=== PATIENT | female | born 1985 | race African-American/Black ===

== ENCOUNTER 2016-12-20 19:54 | Emergency (ER) | payer OTHER ==
[2016-12-20] MEDS ORDERED: KETOROLAC 30 MG/ML 1 ML VIAL IVP STA (20:18)
[2016-12-20] MEDS ORDERED: SODIUM CHLORIDE 0.9% 1,000 ML IV ONE (20:19)
--- NOTE | 2016-12-20 20:43 | ED ---
Abdominal Pain HPI - General Chief Complaint: Abdominal Pain Stated Complaint: Abd Pain Time Seen by Provider: 12/20/16 20:06 Source: patient, RN notes reviewed Mode of arrival: ambulatory Limitations: no limitations - History of Present Illness Initial Comments: Patient is a 31-year-old [employer] chief complaint of sharp stabbing lower abdominal pain and cramping for approximately one day. She reports that she had similar symptoms a few days ago but that has subsided. She states that also today she' s noticed some faint pink vaginal discharge. LAst menstrual cylcle was 2 weeks ago. Patient denies any recent fever, chills, shortness of breath, chest pain, back pain, , nausea vomiting, numbness or tingling, dysuria or hematuria, constipation or diarrhea, headaches or visual changes, or any other current symptoms - Related Data Home Medications Medication Instructions Recorded Confirmed Albuterol Inhaler [Ventolin Hfa 2 puff INHALATION RT-Q6H PRN 12/20/16 12/20/16 Inhaler] Albuterol Nebulized [Ventolin 2.5 mg INHALATION RT-QID PRN 12/20/16 12/20/16 Nebulized] Loratadine [Claritin] 10 mg PO DAILY 12/20/16 12/20/16 Montelukast [Singulair] 10 mg PO HS 12/20/16 12/20/16 Previous Rx's Medication Instructions Recorded Nitrofurantoin Monohyd/M-Cryst 100 mg PO Q12HR #10 cap 12/20/16 [Macrobid] Phenazopyridine HCl [Pyridium] 100 mg PO TID #6 tab 12/20/16 Allergies Allergy/AdvReac Type Severity Reaction Status Date / Time Penicillins Allergy Rash/Hives Verified 12/20/16 20:04 Review of Systems ROS Statement: Those systems with pertinent positive or pertinent negative responses have been documented in the HPI. ROS Other: All systems not noted in ROS Statement are negative. Past Medical History Past Medical History: Asthma History of Any Multi-Drug Resistant Organisms: None Reported Past Surgical History: Section Past Psychological History: No Psychological Hx Reported Smoking Status: Never smoker Past Alcohol Use History: Rare Past Drug Use History: None Reported General Exam - General Exam Comments Initial Comments: Well appearing 31 year old female, no distress. Limitations: no limitations General appearance: alert, in no apparent distress Head exam: Present: atraumatic, normocephalic, normal inspection Eye exam: Present: normal appearance, PERRL, EOMI. Absent: scleral icterus, conjunctival injection, periorbital swelling ENT exam: Present: normal exam, mucous membranes moist Neck exam: Present: normal inspection. Absent: tenderness, meningismus, lymphadenopathy Respiratory exam: Present: normal lung sounds bilaterally. Absent: respiratory distress, wheezes, rales, rhonchi, stridor Cardiovascular Exam: Present: regular rate, normal rhythm, normal heart sounds. Absent: systolic murmur, diastolic murmur, rubs, gallop, clicks GI/Abdominal exam: Present: soft, normal bowel sounds. Absent: distended, tenderness, guarding, rebound, rigid External exam: Present: normal external exam Speculum exam: Present: vaginal bleeding. Absent: normal speculum exam, vaginal discharge, cervical discharge, foreign body By manual exam: Present: normal by manual exam. Absent: cervical motion tenderness, adnexal tenderness, adnexal mass Extremities exam: Present: normal inspection, full ROM, normal capillary refill. Absent: tenderness, pedal edema, joint swelling, calf tenderness Back exam: Present: normal inspection Neurological exam: Present: alert, oriented X3, CN II-XII intact Psychiatric exam: Present: normal affect, normal mood Skin exam: Present: warm, dry, intact, normal color. Absent: rash Course Vital Signs 12/20/16 12/20/16 19:55 20:02 Temperature 99.3 F 97.1 F L Pulse Rate 89 72 Respiratory 20 18 Rate Blood Pressure 151/72 128/66 O2 Sat by Pulse 97 100 Oximetry Medical Decision Making - Medical Decision Making Patient lab work reviewed, mild UTI patient will be started on macrobid. Patient speculum exam consist of vaginal bleedking consistent with menstrual cylce. Patient has negative hcg. Discussed case of abnormal uterine bleeding, discussed follow up with PCP on saturday for possible transvaginal US or further imaging. Patient has no tenderness or cervical motion tenderness. Patient agrees with threatmetn plan and will comply. - Lab Data Result diagrams: 12/20/16 20:34 12/20/16 20:34 Lab Results 12/20/16 12/20/16 12/20/16 Range/Units 20:34 20:34 20:34 WBC 5.0 (3.8-10.6) k/uL RBC 4.21 (3.80-5.40) m/uL Hgb 11.7 (11.4-16.0) gm/dL Hct 36.7 (34.0-46.0) % MCV 87.0 (80.0-100.0) fL MCH 27.8 (25.0-35.0) pg MCHC 32.0 (31.0-37.0) g/dL RDW 16.6 H (11.5-15.5) % Plt Count 210 (150-450) k/uL Neutrophils % 60 % Lymphocytes % 29 % Monocytes % 6 % Eosinophils % 1 % Basophils % 1 % Neutrophils # 3.0 (1.3-7.7) k/uL Lymphocytes # 1.5 (1.0-4.8) k/uL Monocytes # 0.3 (0-1.0) k/uL Eosinophils # 0.0 (0-0.7) k/uL Basophils # 0.0 (0-0.2) k/uL Anisocytosis Slight PT (9.0-12.0) sec INR (<1.1) APTT (22.0-30.0) sec Sodium 141 (137-145) mmol/L Potassium 3.7 (3.5-5.1) mmol/L Chloride 104 (98-107) mmol/L Carbon Dioxide 27 (22-30) mmol/L Anion Gap 10 mmol/L BUN 8 (7-17) mg/dL Creatinine 0.80 (0.52-1.04) mg/dL Est GFR (MDRD) Af Amer >60 (>60 ml/min/1.73 sqM) Est GFR (MDRD) Non-Af >60 (>60 ml/min/1.73 sqM) Glucose 90 (74-99) mg/dL Calcium 9.0 (8.4-10.2) mg/dL Total Bilirubin 0.6 (0.2-1.3) mg/dL AST 21 (14-36) U/L ALT 37 (9-52) U/L Alkaline Phosphatase 73 (38-126) U/L Total Protein 8.1 (6.3-8.2) g/dL Albumin 4.3 (3.5-5.0) g/dL Urine Color Urine Appearance (Clear) Urine pH (5.0-8.0) Ur Specific [place] (1.001-1.035) Urine Protein (Negative) Urine Glucose (UA) (Negative) Urine Ketones (Negative) Urine Blood (Negative) Urine Nitrite (Negative) Urine Bilirubin (Negative) Urine Urobilinogen (<2.0) mg/dL Ur Leukocyte Esterase (Negative) Urine RBC (0-5) /hpf Urine WBC (0-5) /hpf Ur Squamous Epith Cells (0-4) /hpf Urine Bacteria (None) /hpf Hyaline Casts (0-2) /lpf Urine Mucus (None) /hpf Urine HCG, Qual Not Detected (Not Detectd) Trichomonas Ag (Rapid) (Negative) 12/20/16 12/20/16 12/20/16 Range/Units 20:34 20:34 21:08 WBC (3.8-10.6) k/uL RBC (3.80-5.40) m/uL Hgb (11.4-16.0) gm/dL Hct (34.0-46.0) % MCV (80.0-100.0) fL MCH (25.0-35.0) pg MCHC (31.0-37.0) g/dL RDW (11.5-15.5) % Plt Count (150-450) k/uL Neutrophils % % Lymphocytes % % Monocytes % % Eosinophils % % Basophils % % Neutrophils # (1.3-7.7) k/uL Lymphocytes # (1.0-4.8) k/uL Monocytes # (0-1.0) k/uL Eosinophils # (0-0.7) k/uL Basophils # (0-0.2) k/uL Anisocytosis PT 10.4 (9.0-12.0) sec INR 1.0 (<1.1) APTT 27.0 (22.0-30.0) sec Sodium (137-145) mmol/L Potassium (3.5-5.1) mmol/L Chloride (98-107) mmol/L Carbon Dioxide (22-30) mmol/L Anion Gap mmol/L BUN (7-17) mg/dL Creatinine (0.52-1.04) mg/dL Est GFR (MDRD) Af Amer (>60 ml/min/1.73 sqM) Est GFR (MDRD) Non-Af (>60 ml/min/1.73 sqM) Glucose (74-99) mg/dL Calcium (8.4-10.2) mg/dL Total Bilirubin (0.2-1.3) mg/dL AST (14-36) U/L ALT (9-52) U/L Alkaline Phosphatase (38-126) U/L Total Protein (6.3-8.2) g/dL Albumin (3.5-5.0) g/dL Urine Color Yellow Urine Appearance Cloudy H (Clear) Urine pH 6.0 (5.0-8.0) Ur Specific [place] 1.021 (1.001-1.035) Urine Protein 3+ H (Negative) Urine Glucose (UA) Negative (Negative) Urine Ketones Negative (Negative) Urine Blood Moderate H (Negative) Urine Nitrite Positive H (Negative) Urine Bilirubin Negative (Negative) Urine Urobilinogen <2.0 (<2.0) mg/dL Ur Leukocyte Esterase Negative (Negative) Urine RBC 51 H (0-5) /hpf Urine WBC 28 H (0-5) /hpf Ur Squamous Epith Cells 1 (0-4) /hpf Urine Bacteria Moderate H (None) /hpf Hyaline Casts 1 (0-2) /lpf Urine Mucus Many H (None) /hpf Urine HCG, Qual (Not Detectd) Trichomonas Ag (Rapid) Negative (Negative) Disposition Clinical Impression: Abnormal uterine bleeding, UTI (urinary tract infection) Disposition: HOME SELF-CARE Condition: Good Instructions: Urinary Tract Infection in Women (ED), Dysfunctional Uterine Bleeding (ED) Additional Instructions: Patient is to follow-up with primary care provider on Saturday. Return to emergency department if any alarming signs or symptoms occur. Complete antibiotic prescription. Prescriptions: Nitrofurantoin Monohyd/M-Cryst [Macrobid] 100 mg PO Q12HR #10 cap Phenazopyridine HCl [Pyridium] 100 mg PO TID #6 tab Referrals: Sydnie Otoole MD [Primary Care Provider] - 1-2 days Time of Disposition: 21:51
[2016-12-20 20:50] LABS: Anisocytosis Slight; Basophils % (A) 1 %; CH 27.9; CHCM 32.1; Eosinophils % (A) 1 %; HCT 36.7 % (34.0-46.0); HDW 2.85; HGB 11.7 gm/dL (11.4-16.0); Luc % (Auto) 4; Lymphocytes # (A) 1.5 k/uL (1.0-4.8); Lymphocytes % (A) 29 %; MCH 27.8 pg (25.0-35.0); Mean Platelet Volume 7.8; Monocytes # (A) 0.3 k/uL (0-1.0); Monocytes % (A) 6 %; Neutrophils % (A) 60 %; RBC 4.21 m/uL (3.80-5.40); RDW 16.6 % (11.5-15.5); WBC (Perox) 5.01
[2016-12-20 20:57] LABS: Appearance,Urine Cloudy (Clear); Bacteria,Urine Moderate /hpf; Bilirubin,Urine Negative (Negative); Glucose,Urine (UA) Negative (Negative); Ketones,Urine Negative (Negative); Leukocyte Esterase,Urine Negative (Negative); Mucus,Urine Many /hpf; Nitrite,Urine Positive (Negative); Particle Count 28350; Protein,Urine 3+ (Negative); RBC,Urine 51 /hpf (0-5); Specific Gravity,Urine 1.021 (1.001-1.035); Squamous Epithelial Cell,Urine 1 /hpf (0-4); UA Billing (MACRO vs. MICRO) MICRO; Urobilinogen,Urine <2.0 mg/dL (<2.0); WBC,Urine 28 /hpf (0-5)
[2016-12-20 21:01] LABS: ALT 37 U/L (9-52); AST 21 U/L (14-36); Alkaline Phosphatase 73 U/L (38-126); Anion Gap 10 mmol/L; Blood Urea Nitrogen 8 mg/dL (7-17); Carbon Dioxide 27 mmol/L (22-30); Chloride 104 mmol/L (98-107); Glucose 90 mg/dL (74-99); Non-African American GFR(MDRD) >60 (>60 ml/min/1.73 sqM); Potassium 3.7 mmol/L (3.5-5.1); Sodium 141 mmol/L (137-145); Total Bilirubin 0.6 mg/dL (0.2-1.3); Total Protein 8.1 g/dL (6.3-8.2)
[2016-12-20 21:05] LABS: Prothrombin Time 10.4 sec (9.0-12.0)
[2016-12-20 22:15] VITALS: BP 128/66; PULSE 72; RESP 18; TEMP 97.1
== END 2016-12-20 22:15 | disposition home or self-care (01) ==
LOC: EC 19:54
DX: N93.9 Abnormal uterine and vaginal bleeding, unspecified (principal); N39.0 Urinary tract infection, site not specified; J45.909 Unspecified asthma, uncomplicated; Z79.899 Other long term (current) drug therapy; Z88.0 Allergy status to penicillin
CPT/HCPCS: 99284; 96374; 96361; 36415; 80053; 87591; 87491; 85025; 85610; 85730; 81001; 81025; 87808; 87070; J1885; 87205

== ENCOUNTER → 2017-01-15 | Outpatient (CLI) | payer OTHER ==
--- NOTE | 2017-01-15 11:52 | US ---
EXAMINATION TYPE: US pelvis complete transvag DATE OF EXAM: 01/15/2017 10:57 AM COMPARISON: 07/22/2015 CLINICAL HISTORY: 31-year-old female with R10.2 Pelvic pain,N92.6 irregular menstrual. TECHNIQUE: Multiple transabdominal sonographic images of the pelvis were obtained. Endovaginal scann ing was medically necessary to better evaluate the anatomy. Date of LMP: 12/15/2016, FINDINGS: Uterus: Prominent in size and anteverted measuring 10.3 x 6.5 x 7.1 cm. A scar is noted khris ng the anterior lower uterine segment. Endometrial Stripe: 1.7 cm, mildly thickened. Right Ovary: 3.5 x 1.9 x 1.6 cm, limited visualization due to ovarian position. No gross abnormalit y. Left Ovary: 3.4 x 2.1 x 1.7 cm with a crenulated thick walled cystic structure measuring 1.9 cm show ing peripheral vascularity. No evident adnexal abnormality or cul-de-sac free fluid. IMPRESSION: 1. Somewhat bulky uterus but without a focal fibroid seen. 2. scar noted. 3. Endometrial thickening at 1.7 cm. This should correspond to the late secretory phase of the menstr ual cycle. A follow-up in 6 - 8 weeks can reassess if indicated. 4. Incidental 1.9 cm corpus luteum in the left ovary.
== END | disposition home or self-care (01) ==
LOC: RADUSWWP 10:11
PROVIDERS: ATTEND Family Medicine
DX: N83.12 Corpus luteum cyst of left ovary (principal); R93.8 Abnormal findings on diagnostic imaging of other specified body structures; R10.2 Pelvic and perineal pain; N92.6 Irregular menstruation, unspecified
CPT/HCPCS: 76830; 76856

== ENCOUNTER → 2017-05-24 | Outpatient (CLI) | payer OTHER ==
--- NOTE | 2017-05-24 11:19 | US ---
EXAMINATION TYPE: US pelvis complete transvag DATE OF EXAM: 05/24/2017 COMPARISON: NONE CLINICAL HISTORY: Left ovarian cyst N83.20. TECHNIQUE: Transvaginal (TV) and Transabdominal (TA) Date of LMP: 05/12/2017 EXAM MEASUREMENTS: Uterus: 10.4 x 6.3 x 6.1 cm Endometrial Stripe: 0.8 cm Right Ovary: 3.7 x 1.9 x 2.2 cm Left Ovary: 3.7 x 2.4 x 1.7 cm 1. Uterus: Anteverted Enlarged 2. Endometrium: wnl 3. Right Ovary: Hypoechoic area visualized measuring 1.7 x 1.7 x 1.5 cm 4. Left Ovary: wnl, cyst previously seen is not visualized on today's exam 5. Bilateral Adnexa: wnl 6. Posterior cul-de-sac: wnl IMPRESSION: 1. Appears to be a complex cyst on the right ovary measuring 1.7 cm. Follow-up to resolution is recom mended. This could be related to the hemorrhagic cyst. 2. Previous left ovarian cyst is not evident on the current study.
[2017-05-24 12:05] LABS: Hemoglobin A1C 5.1 % (4.2-6.1)
== END | disposition home or self-care (01) ==
LOC: RADUSWWP 10:08
PROVIDERS: ATTEND Obstetrics & Gynecology
DX: N83.202 Unspecified ovarian cyst, left side (principal); N92.0 Excessive and frequent menstruation with regular cycle
CPT/HCPCS: 36415; 76830; 76856; 83001; 83002; 83036; 84146; 84443

== ENCOUNTER → 2019-08-24 | Outpatient (CLI) | payer OTHER ==
[2019-08-24 17:08] LABS: HCT 35.2 % (34.0-46.0); HGB 10.8 gm/dL (11.4-16.0); Hypochromasia Slight; MCHC 30.6 g/dL (31.0-37.0); MCV 81.9 fL (80.0-100.0); Mean Platelet Volume 8.3; Platelet Count 207 k/uL (150-450); RBC 4.29 m/uL (3.80-5.40); WBC 6.6 k/uL (3.8-10.6)
[2019-08-25 02:54] LABS: Hemoglobin A1C 5.2 % (4.0-6.0)
[2019-08-25 05:02] LABS: Progesterone 7.2 ng/mL
[2019-08-25 05:18] LABS: Prolactin 8.2 ng/mL (2.8-29.2)
[2019-08-25 05:19] LABS: Estradiol 126.8 pg/mL; Follicle Stimulating Hormone 4.5 mIU/mL; Luteinizing Hormone 4.4 mIU/mL
== END | disposition home or self-care (01) ==
LOC: LABWHC1 16:31
PROVIDERS: ATTEND Obstetrics & Gynecology
DX: N93.8 Other specified abnormal uterine and vaginal bleeding (principal); N64.3 Galactorrhea not associated with childbirth
CPT/HCPCS: 36415; 82670; 82947; 83001; 83002; 83036; 84144; 84146; 84403; 84443; 84479; 84481; 85027

== ENCOUNTER → 2020-12-30 | Outpatient (CLI) | payer OTHER | END | disposition home or self-care (01) | LOC: LABWHC1 12:28 | PROVIDERS: ATTEND Obstetrics & Gynecology | DX: N92.6 Irregular menstruation, unspecified (principal) | CPT/HCPCS: 36415; 84702 ==

== ENCOUNTER 2021-08-18 10:47 | Emergency (ER) | payer OTHER ==
[2021-08-18 12:21] LABS: Appearance,Urine Clear (Clear); Bacteria,Urine Rare /hpf; Bilirubin,Urine Negative (Negative); Blood,Urine Trace (Negative); Color,Urine Light Yellow; Glucose,Urine (UA) Negative (Negative); Ketones,Urine Negative (Negative); Leukocyte Esterase,Urine Negative (Negative); Nitrite,Urine Negative (Negative); PH, Urine 5.5 (5.0-8.0); Protein,Urine Negative (Negative); RBC,Urine 1 /hpf (0-5); Specific Gravity,Urine 1.005 (1.001-1.035); Squamous Epithelial Cell,Urine 2 /hpf (0-4); Urobilinogen,Urine <2.0 mg/dL (<2.0); WBC,Urine 2 /hpf (0-5)
[2021-08-18] MEDS ORDERED: KETOROLAC 15 MG/ML 1 ML VIAL IVP STA (14:26)
[2021-08-18] MEDS ORDERED: SODIUM CHLORIDE 0.9% 1,000 ML IV STA (14:26)
[2021-08-18] MEDS ORDERED: ONDANSETRON 4 MG/2 ML VIAL IVP STA (14:26)
[2021-08-18 14:56] LABS: Basophils % (A) 0 %; Eosinophils # (A) 0.2 k/uL (0-0.7); Eosinophils % (A) 3 %; HCT 40.1 % (34.0-46.0); HGB 13.2 gm/dL (11.4-16.0); Lymphocytes # (A) 1.6 k/uL (1.0-4.8); Lymphocytes % (A) 30 %; MCH 31.2 pg (25.0-35.0); MCHC 32.9 g/dL (31.0-37.0); Mean Platelet Volume 7.5; Monocytes # (A) 0.2 k/uL (0-1.0); Monocytes % (A) 4 %; Neutrophils # (A) 3.4 k/uL (1.3-7.7); Neutrophils % (A) 62 %; Platelet Count 186 k/uL (150-450); RBC 4.22 m/uL (3.80-5.40); RDW 15.1 % (11.5-15.5); WBC 5.5 k/uL (3.8-10.6)
[2021-08-18 15:13] LABS: ALT 40 U/L (4-34); AST 36 U/L (14-36); African American GFR (CKD) >90 (>60 ml/min/1.73 sqM); Albumin 4.1 g/dL (3.5-5.0); Alkaline Phosphatase 65 U/L (38-126); Amylase 45 U/L (30-110); Anion Gap 8 mmol/L; Blood Urea Nitrogen 5 mg/dL (7-17); Calcium 9.6 mg/dL (8.4-10.2); Carbon Dioxide 26 mmol/L (22-30); Chloride 104 mmol/L (98-107); Glucose 102 mg/dL (74-99); Lipase 60 U/L (23-300); Non-African American GFR(CKD) 88 (>60 ml/min/1.73 sqM); Potassium 3.9 mmol/L (3.5-5.1); Sodium 138 mmol/L (137-145); Total Bilirubin 0.8 mg/dL (0.2-1.3); Total Protein 7.9 g/dL (6.3-8.2)
[2021-08-18 15:43] VITALS: RESP 17
--- NOTE | 2021-08-18 15:47 | CT ---
EXAMINATION TYPE: CT abdomen pelvis w con DATE OF EXAM: 08/18/2021 COMPARISON: None HISTORY: abd pain for [address] DLP: 3235 mGycm CONTRAST: CT scan of the abdomen and pelvis is performed and with IV Contrast, patient injected with 100 mL of Isovue 300. FINDINGS: LUNG BASES-: No visible nodule. No infiltrate. Right basilar dependent atelectasis. LIVER/GB: No calcified gallstones. No space occupying hepatic lesion. Biliary tree is of normal ca liber. PANCREAS: No inflammation. No distinct mass. SPLEEN: No splenic enlargement. No lesion seen. ADRENALS: No nodule. No thickening. KIDNEYS/BLADDER: No hydronephrosis. No nephrolithiasis. No distinct renal mass. Urinary bladder g rossly unremarkable. BOWEL: Normal appendix. Normal bowel caliber. Mild wall thickening of the jejunal loops with the mil d fluid distention may reflect enteritis. Correlate clinically. No free air or abscess. GENITAL ORGANS: Uterine fundal fullness may reflect underlying leiomyomatous change. No adnexal raheel s. Trace free fluid within the cul-de-sac. LYMPH NODES: No greater than 1cm abdominal or pelvic lymph nodes are appreciated. AORTA: No significant abnormality. OSSEOUS STRUCTURES: No significant abnormality is seen. OTHER: No significant additional abnormality is seen. IMPRESSION: 1. Mild wall thickening of the jejunal loops with the mild fluid distention may reflect enteritis. Co rrelate clinically. 2.Uterine fundal fullness may reflect underlying leiomyomatous change.
--- NOTE | 2021-08-18 17:06 | ED ---
General Adult HPI - General Chief complaint: Abdominal Pain Stated complaint: abd pain Time Seen by Provider: 08/18/21 14:13 Source: patient Mode of arrival: ambulatory Limitations: no limitations - History of Present Illness Initial comments: 36-year-old female without any significant past medical history presents to the emergency room for abdominal pain. She has had lower abdominal pain for the past several days at least. Patient states it may have been ongoing on and off for the past couple months but she is not 100% sure. She has also had nausea with this. No vomiting. She has not had any diarrhea. She did not have any fevers. Patient has no other complaints at this time including shortness of breath, chest pain, nausea or vomiting, headache, or visual changes. - Related Data Home Medications Medication Instructions Recorded Confirmed Loratadine [Claritin] 10 mg PO HS 12/20/16 08/18/21 Previous Rx's Medication Instructions Recorded Dicyclomine [Bentyl] 20 mg PO TID PRN #20 tablet 08/18/21 Allergies Allergy/AdvReac Type Severity Reaction Status Date / Time Penicillins Allergy Rash/Hives Verified 08/18/21 14:27 Review of Systems ROS Statement: Those systems with pertinent positive or pertinent negative responses have been documented in the HPI. ROS Other: All systems not noted in ROS Statement are negative. Past Medical History Past Medical History: Asthma History of Any Multi-Drug Resistant Organisms: None Reported Past Surgical History: Section Past Psychological History: No Psychological Hx Reported Smoking Status: Never smoker Past Alcohol Use History: Rare Past Drug Use History: None Reported General Exam Limitations: no limitations General appearance: alert, in no apparent distress Head exam: Present: atraumatic Eye exam: Present: normal appearance, PERRL, EOMI. Absent: conjunctival injection ENT exam: Present: normal exam, mucous membranes moist Neck exam: Present: normal inspection, full ROM. Absent: tenderness Respiratory exam: Present: normal lung sounds bilaterally. Absent: respiratory distress, wheezes Cardiovascular Exam: Present: regular rate, normal rhythm, normal heart sounds GI/Abdominal exam: Present: soft, normal bowel sounds. Absent: distended, tenderness, guarding, rebound Course Vital Signs 08/18/21 08/18/21 11:07 15:11 Temperature 99.4 F Pulse Rate 77 78 Respiratory 18 17 Rate Blood Pressure 134/78 O2 Sat by Pulse 100 Oximetry Medical Decision Making - Medical Decision Making Vitals are stable. CBC CMP unremarkable. Urinalysis is not negative. HCG is not detected. He T abdomen and pelvis shows mild wall thickening of the jejunal loops with the mild fluid distention I may reflect enteritis. There is also uterine fundal fullness that may reflect underlying leiomyomatous change. Patient reevaluated after pain medication. She is doing much better. Repeat abdominal exam revealed no tenderness again. Patient can be discharged home until and Motrin. Recommend that she follow-up with GI and her [facility]. If she has worsening symptoms she will return to the emergency room. - Lab Data Result diagrams: 08/18/21 14:31 08/18/21 14:31 Lab Results 08/18/21 08/18/21 08/18/21 Range/Units 11:30 11:30 14:31 WBC 5.5 (3.8-10.6) k/uL RBC 4.22 (3.80-5.40) m/uL Hgb 13.2 (11.4-16.0) gm/dL Hct 40.1 (34.0-46.0) % MCV 95.0 (80.0-100.0) fL MCH 31.2 (25.0-35.0) pg MCHC 32.9 (31.0-37.0) g/dL RDW 15.1 (11.5-15.5) % Plt Count 186 (150-450) k/uL MPV 7.5 Neutrophils % 62 % Lymphocytes % 30 % Monocytes % 4 % Eosinophils % 3 % Basophils % 0 % Neutrophils # 3.4 (1.3-7.7) k/uL Lymphocytes # 1.6 (1.0-4.8) k/uL Monocytes # 0.2 (0-1.0) k/uL Eosinophils # 0.2 (0-0.7) k/uL Basophils # 0.0 (0-0.2) k/uL Sodium (137-145) mmol/L Potassium (3.5-5.1) mmol/L Chloride (98-107) mmol/L Carbon Dioxide (22-30) mmol/L Anion Gap mmol/L BUN (7-17) mg/dL Creatinine (0.52-1.04) mg/dL Est GFR (CKD-EPI)AfAm (>60 ml/min/1.73 sqM) Est GFR (CKD-EPI)NonAf (>60 ml/min/1.73 sqM) Glucose (74-99) mg/dL Calcium (8.4-10.2) mg/dL Total Bilirubin (0.2-1.3) mg/dL AST (14-36) U/L ALT (4-34) U/L Alkaline Phosphatase (38-126) U/L Total Protein (6.3-8.2) g/dL Albumin (3.5-5.0) g/dL Amylase (30-110) U/L Lipase (23-300) U/L Urine Color Light Yellow Urine Appearance Clear (Clear) Urine pH 5.5 (5.0-8.0) Ur Specific [place] 1.005 (1.001-1.035) Urine Protein Negative (Negative) Urine Glucose (UA) Negative (Negative) Urine Ketones Negative (Negative) Urine Blood Trace H (Negative) Urine Nitrite Negative (Negative) Urine Bilirubin Negative (Negative) Urine Urobilinogen <2.0 (<2.0) mg/dL Ur Leukocyte Esterase Negative (Negative) Urine RBC 1 (0-5) /hpf Urine WBC 2 (0-5) /hpf Ur Squamous Epith Cells 2 (0-4) /hpf Urine Bacteria Rare H (None) /hpf Urine HCG, Qual Not Detected (Not Detectd) 08/18/21 Range/Units 14:31 WBC (3.8-10.6) k/uL RBC (3.80-5.40) m/uL Hgb (11.4-16.0) gm/dL Hct (34.0-46.0) % MCV (80.0-100.0) fL MCH (25.0-35.0) pg MCHC (31.0-37.0) g/dL RDW (11.5-15.5) % Plt Count (150-450) k/uL MPV Neutrophils % % Lymphocytes % % Monocytes % % Eosinophils % % Basophils % % Neutrophils # (1.3-7.7) k/uL Lymphocytes # (1.0-4.8) k/uL Monocytes # (0-1.0) k/uL Eosinophils # (0-0.7) k/uL Basophils # (0-0.2) k/uL Sodium 138 (137-145) mmol/L Potassium 3.9 (3.5-5.1) mmol/L Chloride 104 (98-107) mmol/L Carbon Dioxide 26 (22-30) mmol/L Anion Gap 8 mmol/L BUN 5 L (7-17) mg/dL Creatinine 0.84 (0.52-1.04) mg/dL Est GFR (CKD-EPI)AfAm >90 (>60 ml/min/1.73 sqM) Est GFR (CKD-EPI)NonAf 88 (>60 ml/min/1.73 sqM) Glucose 102 H (74-99) mg/dL Calcium 9.6 (8.4-10.2) mg/dL Total Bilirubin 0.8 (0.2-1.3) mg/dL AST 36 (14-36) U/L ALT 40 H (4-34) U/L Alkaline Phosphatase 65 (38-126) U/L Total Protein 7.9 (6.3-8.2) g/dL Albumin 4.1 (3.5-5.0) g/dL Amylase 45 (30-110) U/L Lipase 60 (23-300) U/L Urine Color Urine Appearance (Clear) Urine pH (5.0-8.0) Ur Specific [place] (1.001-1.035) Urine Protein (Negative) Urine Glucose (UA) (Negative) Urine Ketones (Negative) Urine Blood (Negative) Urine Nitrite (Negative) Urine Bilirubin (Negative) Urine Urobilinogen (<2.0) mg/dL Ur Leukocyte Esterase (Negative) Urine RBC (0-5) /hpf Urine WBC (0-5) /hpf Ur Squamous Epith Cells (0-4) /hpf Urine Bacteria (None) /hpf Urine HCG, Qual (Not Detectd) Disposition Clinical Impression: Abdominal pain Narrative: enteritis uterine changes Disposition: HOME SELF-CARE Condition: Good Instructions (If sedation given, give patient instructions): Abdominal Pain (ED) Additional Instructions: Please follow up with GI and [facility]. Please return to the emergency room for any worsening symptoms. Prescriptions: Dicyclomine [Bentyl] 20 mg PO TID PRN #20 tablet PRN Reason: abdominal pain Is patient prescribed a controlled substance at d/c from ED?: No Referrals: Sydnie Otoole MD [Primary Care Provider] - 1-2 days Yesenia Draper MD [STAFF PHYSICIAN] - 1-2 days Time of Disposition: 16:58
[2021-08-18 17:13] VITALS: BP 128/70; PULSE 75; TEMP 97.6
== END 2021-08-18 17:22 | disposition home or self-care (01) ==
LOC: EC 10:47
DX: R10.9 Unspecified abdominal pain (principal); J45.909 Unspecified asthma, uncomplicated
CPT/HCPCS: 36415; 80053; 82150; 83690; 85025; 81001; 81025; 74177; 96374; 96361; 96375; 99284; J2405; J1885; Q9967

== ENCOUNTER 2021-09-13 20:00 | Emergency (ER) | payer OTHER ==
[2021-09-13 21:14] VITALS: TEMP 98.5
[2021-09-13 23:15] VITALS: BP 155/84; PULSE 88; RESP 16
[2021-09-13] MEDS ORDERED: SODIUM CHLORIDE 0.9% 1,000 ML IV STA (23:43)
[2021-09-13] MEDS ORDERED: ONDANSETRON 4 MG/2 ML VIAL IVP STA (23:43)
[2021-09-13] MEDS ORDERED: MORPHINE SULFATE 4 MG/ML SYRINGE IV STA (23:43)
[2021-09-14 00:22] LABS: Basophils % (A) 0 %; Eosinophils # (A) 0.1 k/uL (0-0.7); Eosinophils % (A) 2 %; HCT 39.5 % (34.0-46.0); HGB 12.8 gm/dL (11.4-16.0); Lymphocytes # (A) 1.4 k/uL (1.0-4.8); Lymphocytes % (A) 17 %; MCH 30.5 pg (25.0-35.0); MCHC 32.3 g/dL (31.0-37.0); MCV 94.4 fL (80.0-100.0); Mean Platelet Volume 7.5; Monocytes # (A) 0.4 k/uL (0-1.0); Monocytes % (A) 4 %; Neutrophils # (A) 6.3 k/uL (1.3-7.7); Neutrophils % (A) 76 %; Platelet Count 199 k/uL (150-450); RBC 4.19 m/uL (3.80-5.40); RDW 14.9 % (11.5-15.5); WBC 8.4 k/uL (3.8-10.6)
[2021-09-14 00:49] LABS: ALT 22 U/L (4-34); AST 20 U/L (14-36); African American GFR (CKD) >90 (>60 ml/min/1.73 sqM); Albumin 4.4 g/dL (3.5-5.0); Alkaline Phosphatase 62 U/L (38-126); Amylase 42 U/L (30-110); Anion Gap 12 mmol/L; Blood Urea Nitrogen 7 mg/dL (7-17); Calcium 9.4 mg/dL (8.4-10.2); Carbon Dioxide 26 mmol/L (22-30); Chloride 102 mmol/L (98-107); Glucose 95 mg/dL (74-99); Lipase 61 U/L (23-300); Non-African American GFR(CKD) >90 (>60 ml/min/1.73 sqM); Potassium 3.6 mmol/L (3.5-5.1); Sodium 140 mmol/L (137-145); Total Bilirubin 0.9 mg/dL (0.2-1.3); Total Protein 7.8 g/dL (6.3-8.2)
--- NOTE | 2021-09-14 00:49 | US ---
EXAMINATION TYPE: US transvaginal DATE OF EXAM: 09/14/2021 COMPARISON: US, CT CLINICAL HISTORY: pelvic pain; poss leiomyoma. Pain. Poss leiomyoma. Hx C Section, twin . A0. TECHNIQUE: Transvaginal (TV). Date of LMP: 06/28/2021 EXAM MEASUREMENTS: Uterus: 12.7 x 7.9 x 6.9 cm Endometrial Stripe: Slightly limited visibility. 0.80 cm Right Ovary: 4.3 x 2.4 x 3.2 cm Left Ovary: 3.2 x 2.3 x 1.9 cm 1. Uterus: Anteverted Appears enlarged. Solid heterogeneous area seen posteriorly measuring 8.1 x 6.6 x 6.4 cm. 2. Endometrium: Measures 0.8 cm. 3. Right Ovary: Anechoic area seen: 1.4 x 1.7 x 1.6 cm. 4. Left Ovary: Appears wnl. Spectral, color and waveform doppler imaging shows arterial and venous flow within the ovaries. 5. Bilateral Adnexa: Slightly limited visibility, no abnormalities seen. 6. Posterior cul-de-sac: Minimal fluid seen. IMPRESSION: There is 7.5 cm posterior wall uterine fibroid. No adnexal mass. No evidence of ovarian torsion. Norm al endometrium. Fibroid not changed compared to old CT scan of 08/18/2021.
[2021-09-14 00:51] LABS: Appearance,Urine Cloudy (Clear); Bilirubin,Urine Negative (Negative); Blood,Urine Large (Negative); Color,Urine Light Red; Glucose,Urine (UA) Negative (Negative); Ketones,Urine Trace (Negative); Leukocyte Esterase,Urine Large (Negative); Mucus,Urine Occasional /hpf; Nitrite,Urine Negative (Negative); Protein,Urine 1+ (Negative); RBC,Urine >182 /hpf (0-5); Specific Gravity,Urine 1.024 (1.001-1.035); Squamous Epithelial Cell,Urine 1 /hpf (0-4); WBC,Urine 45 /hpf (0-5)
--- NOTE | 2021-09-14 01:00 | ED ---
Abdominal Pain HPI - General Chief Complaint: Abdominal Pain Stated Complaint: Abdominal pain Time Seen by Provider: 09/13/21 23:18 Source: patient Mode of arrival: ambulatory Limitations: no limitations - History of Present Illness Initial Comments: 36 year-old female patient presents to the emergency department for evaluation of pelvic pain and pressure. States it started on the left side and moved across her lower abdomen. Symptoms started yesterday and have worsened throughout the day today. She denies taking anything for pain. States her last normal period was in June. States since then she has had 3-4 day episodes of light pink to red bleeding. She denies any fever, chills, nausea, vomiting, or diarrhea. Denies any hematuria, dysuria, urinary urgency, or frequency. Patient denies any recent rash, cough, shortness of breath, chest pain, back pain, numbness, tingling, dizziness, weakness, headache, visual changes, or any other complai nts. - Related Data Home Medications Medication Instructions Recorded Confirmed Loratadine [Claritin] 10 mg PO HS 12/20/16 08/18/21 Previous Rx's Medication Instructions Recorded Dicyclomine [Bentyl] 20 mg PO TID PRN #20 tablet 08/18/21 Ibuprofen [Motrin] 600 mg PO Q8HR PRN #30 tab 09/14/21 Allergies Allergy/AdvReac Type Severity Reaction Status Date / Time Penicillins Allergy Rash/Hives Verified 09/13/21 21:11 Review of Systems ROS Statement: Those systems with pertinent positive or pertinent negative responses have been documented in the HPI. ROS Other: All systems not noted in ROS Statement are negative. Past Medical History Past Medical History: Asthma History of Any Multi-Drug Resistant Organisms: None Reported Past Surgical History: Section Past Psychological History: No Psychological Hx Reported Smoking Status: Never smoker Past Alcohol Use History: Rare Past Drug Use History: None Reported General Exam Limitations: no limitations General appearance: alert, in no apparent distress, other (This is a well- developed, well-nourished adult female patient in no acute distress.) ENT exam: Present: normal exam, normal oropharynx, mucous membranes moist Respiratory exam: Present: normal lung sounds bilaterally. Absent: respiratory distress, wheezes, rales, rhonchi, stridor Cardiovascular Exam: Present: regular rate, normal rhythm, normal heart sounds. Absent: systolic murmur, diastolic murmur, rubs, gallop, clicks GI/Abdominal exam: Present: soft, normal bowel sounds. Absent: distended, tenderness, guarding, rebound, rigid Neurological exam: Present: alert, oriented X3, CN II-XII intact Psychiatric exam: Present: normal affect, normal mood Skin exam: Present: warm, dry, intact, normal color. Absent: rash Course Vital Signs 09/13/21 09/13/21 21:11 23:09 Temperature 98.5 F Pulse Rate 91 88 Respiratory 20 16 Rate Blood Pressure 151/80 155/84 O2 Sat by Pulse 100 98 Oximetry Medical Decision Making - Medical Decision Making 36-year-old female patient presents to the emergency department today for evaluation of pelvic pain and irregular vaginal bleeding. Physical examination showed lower abdominal tenderness. She is afebrile wtih normal vital signs. Urine did show presence of blood, though she is having vaginal bleeding cur rently. Labs reviewed and revealed very mildly elevated HCG. US transvaginal showed uterine fibroid which was redemonstrated from previous CT scan in August. She is following with Dr. Talbot in regards to this. She be discharged to follow-up with Dr. Tinajero as soon as possible. Return parameters were discussed in detail. She verbalizes understanding and agrees with this plan. My attending is Dr. Landers. - Lab Data Result diagrams: 09/14/21 00:15 09/13/21 23:52 Lab Results 09/13/21 09/14/21 09/14/21 Range/Units 23:52 00:15 00:15 WBC 8.4 (3.8-10.6) k/uL RBC 4.19 (3.80-5.40) m/uL Hgb 12.8 (11.4-16.0) gm/dL Hct 39.5 (34.0-46.0) % MCV 94.4 (80.0-100.0) fL MCH 30.5 (25.0-35.0) pg MCHC 32.3 (31.0-37.0) g/dL RDW 14.9 (11.5-15.5) % Plt Count 199 (150-450) k/uL MPV 7.5 Neutrophils % 76 % Lymphocytes % 17 % Monocytes % 4 % Eosinophils % 2 % Basophils % 0 % Neutrophils # 6.3 (1.3-7.7) k/uL Lymphocytes # 1.4 (1.0-4.8) k/uL Monocytes # 0.4 (0-1.0) k/uL Eosinophils # 0.1 (0-0.7) k/uL Basophils # 0.0 (0-0.2) k/uL Sodium 140 (137-145) mmol/L Potassium 3.6 (3.5-5.1) mmol/L Chloride 102 (98-107) mmol/L Carbon Dioxide 26 (22-30) mmol/L Anion Gap 12 mmol/L BUN 7 (7-17) mg/dL Creatinine 0.82 (0.52-1.04) mg/dL Est GFR (CKD-EPI)AfAm >90 (>60 ml/min/1.73 sqM) Est GFR (CKD-EPI)NonAf >90 (>60 ml/min/1.73 sqM) Glucose 95 (74-99) mg/dL Plasma Lactic Acid Twan (0.7-2.0) mmol/L Calcium 9.4 (8.4-10.2) mg/dL Total Bilirubin 0.9 (0.2-1.3) mg/dL AST 20 (14-36) U/L ALT 22 (4-34) U/L Alkaline Phosphatase 62 (38-126) U/L Total Protein 7.8 (6.3-8.2) g/dL Albumin 4.4 (3.5-5.0) g/dL Amylase 42 (30-110) U/L Lipase 61 (23-300) U/L HCG, Quant 4.8 mIU/mL Urine Color Light Red Urine Appearance Cloudy H (Clear) Urine pH 6.0 (5.0-8.0) Ur Specific [place] 1.024 (1.001-1.035) Urine Protein 1+ H (Negative) Urine Glucose (UA) Negative (Negative) Urine Ketones Trace H (Negative) Urine Blood Large H (Negative) Urine Nitrite Negative (Negative) Urine Bilirubin Negative (Negative) Urine Urobilinogen 3.0 (<2.0) mg/dL Ur Leukocyte Esterase Large H (Negative) Urine RBC >182 H (0-5) /hpf Urine WBC 45 H (0-5) /hpf Ur Squamous Epith Cells 1 (0-4) /hpf Urine Mucus Occasional H (None) /hpf 09/14/21 Range/Units 00:15 WBC (3.8-10.6) k/uL RBC (3.80-5.40) m/uL Hgb (11.4-16.0) gm/dL Hct (34.0-46.0) % MCV (80.0-100.0) fL MCH (25.0-35.0) pg MCHC (31.0-37.0) g/dL RDW (11.5-15.5) % Plt Count (150-450) k/uL MPV Neutrophils % % Lymphocytes % % Monocytes % % Eosinophils % % Basophils % % Neutrophils # (1.3-7.7) k/uL Lymphocytes # (1.0-4.8) k/uL Monocytes # (0-1.0) k/uL Eosinophils # (0-0.7) k/uL Basophils # (0-0.2) k/uL Sodium (137-145) mmol/L Potassium (3.5-5.1) mmol/L Chloride (98-107) mmol/L Carbon Dioxide (22-30) mmol/L Anion Gap mmol/L BUN (7-17) mg/dL Creatinine (0.52-1.04) mg/dL Est GFR (CKD-EPI)AfAm (>60 ml/min/1.73 sqM) Est GFR (CKD-EPI)NonAf (>60 ml/min/1.73 sqM) Glucose (74-99) mg/dL Plasma Lactic Acid Twan 1.0 (0.7-2.0) mmol/L Calcium (8.4-10.2) mg/dL Total Bilirubin (0.2-1.3) mg/dL AST (14-36) U/L ALT (4-34) U/L Alkaline Phosphatase (38-126) U/L Total Protein (6.3-8.2) g/dL Albumin (3.5-5.0) g/dL Amylase (30-110) U/L Lipase (23-300) U/L HCG, Quant mIU/mL Urine Color Urine Appearance (Clear) Urine pH (5.0-8.0) Ur Specific [place] (1.001-1.035) Urine Protein (Negative) Urine Glucose (UA) (Negative) Urine Ketones (Negative) Urine Blood (Negative) Urine Nitrite (Negative) Urine Bilirubin (Negative) Urine Urobilinogen (<2.0) mg/dL Ur Leukocyte Esterase (Negative) Urine RBC (0-5) /hpf Urine WBC (0-5) /hpf Ur Squamous Epith Cells (0-4) /hpf Urine Mucus (None) /hpf - Radiology Data Radiology results: report reviewed, image reviewed Transvaginal ultrasound was obtained. Report was reviewed in its entirety and showed evidence for 7.5 cm posterior lower uterine fibroid. No adnexal mass pain no evidence for ovarian torsion. Normal endometrium. Fibroid not change compared to old CT at 08/18/2021. Disposition Clinical Impression: Pelvic pain, Uterine fibroid Disposition: HOME SELF-CARE Condition: Good Instructions (If sedation given, give patient instructions): Pelvic Pain in Women (ED) Additional Instructions: Medications as directed. Follow-up with Dr. Talbot as soon as possible. Return to the emergency department for any new, worsening, or concerning symptoms. Is patient prescribed a controlled substance at d/c from ED?: No Referrals: Sydnie Otoole MD [Primary Care Provider] - 1-2 days Eloy Talbot DO [Doctor of Osteopathic Medicine] - 1-2 days Time of Disposition: 02:03
[2021-09-14 01:05] LABS: HCG,Quantitative Serum 4.8 mIU/mL
[2021-09-14] MEDS ORDERED: ACET/COD 300 MG/30 MG STARTER PACK 6 TAB BTL PO STA (02:03)
[2021-09-14] MEDS: IBUPROFEN 600 MG STARTER PACK 4 TAB BTL PO STA ×2 (02:30→02:40)
== END 2021-09-14 02:44 | disposition home or self-care (01) ==
LOC: EC 20:00
DX: D25.9 Leiomyoma of uterus, unspecified (principal); J45.909 Unspecified asthma, uncomplicated
CPT/HCPCS: 36415; 80053; 82150; 83605; 83690; 85025; 81001; 84702; 87086; 93975; 76830; 99284; 96374; 96375; 96361; J2270; J2405

== ENCOUNTER → 2021-09-18 | Outpatient (CLI) | payer OTHER | END | disposition home or self-care (01) | LOC: LABWHC1 08:12 | PROVIDERS: ATTEND Obstetrics & Gynecology | DX: N93.8 Other specified abnormal uterine and vaginal bleeding (principal) | CPT/HCPCS: 36415; 84702 ==

== ENCOUNTER 2023-10-07 16:41 | Emergency (ER) | payer OTHER ==
--- NOTE | 2023-10-07 17:00 | ED ---
Fall HPI - General Chief Complaint: Fall Stated Complaint: Fall-Back/Abd Pain Time Seen by Provider: 10/07/23 16:57 Source: patient, RN notes reviewed Mode of arrival: ambulatory Limitations: no limitations - History of Present Illness Initial Comments: This is a 38-year-old female who presents to the emergency department for a fall. States that 4 days ago she slipped on ice and fell, landing on her left side. Complaining of pain to the left rib cage and lower back. Denies hitting her head or sustaining any loss consciousness. Not taking any blood thinners. MD Complaint: fall Onset/Timin -: days(s) - Related Data Home Medications Medication Instructions Recorded Confirmed Loratadine [Claritin] 10 mg PO HS 12/20/16 08/18/21 Previous Rx's Medication Instructions Recorded Dicyclomine [Bentyl] 20 mg PO TID PRN #20 tablet 08/18/21 Ibuprofen [Motrin] 600 mg PO Q8HR PRN #30 tab 09/14/21 Allergies Allergy/AdvReac Type Severity Reaction Status Date / Time Penicillins Allergy Rash/Hives Verified 10/07/23 16:59 Review of Systems ROS Statement: Those systems with pertinent positive or pertinent negative responses have been documented in the HPI. ROS Other: All systems not noted in ROS Statement are negative. Past Medical History Past Medical History: Asthma History of Any Multi-Drug Resistant Organisms: None Reported Past Surgical History: Section Past Psychological History: No Psychological Hx Reported Smoking Status: Never smoker Past Alcohol Use History: Rare Past Drug Use History: None Reported General Exam - General Exam Comments Initial Comments: Visual Physical Exam Vital signs reviewed General: Well-appearing, nontoxic, no acute distress. Head: Normocephalic, atraumatic Eyes: PERRLA, EOMI ENT: Airway patent Chest: Nonlabored breathing Skin: No visual rash, normal skin tone Neuro: Alert and oriented 3 Musculoskeletal: No gross abnormalities Limitations: no limitations General appearance: alert, in no apparent distress Head exam: Present: atraumatic, normocephalic, normal inspection Respiratory exam: Present: normal lung sounds bilaterally. Absent: respiratory distress, wheezes, rales, rhonchi, stridor Cardiovascular Exam: Present: regular rate, normal rhythm, normal heart sounds. Absent: systolic murmur, diastolic murmur, rubs, gallop, clicks GI/Abdominal exam: Present: soft, tenderness (Left mid abdomen), normal bowel sounds. Absent: distended Neurological exam: Present: alert, oriented X3, CN II-XII intact Psychiatric exam: Present: normal affect, normal mood Skin exam: Present: warm, dry, intact, normal color. Absent: rash Course Vital Signs 10/07/23 10/07/23 16:57 22:02 Temperature 98.7 F 98.1 F Pulse Rate 71 74 Respiratory 20 18 Rate Blood Pressure 159/88 130/84 O2 Sat by Pulse 100 100 Oximetry Medical Decision Making - Medical Decision Making I performed the QuickNote portion of this chart. Signed Marilia Broussard PA-C. This is a 38 year old female who presents to the emergency department for a fall. Was pt. sent in by a medical professional or institution? @ -No Did you speak to anyone other than the patient for history? @ -No Did you review nursing and triage notes? @ -Yes, and I agree, it is accurate with regards to the patient's symptoms. Were old charts reviewed? @ -No Differential Diagnosis? @ -Differential Back Pain: Strain, zoster, cauda equina syndrome, epidural abscess, vertebral osteomyelitis, discitis, fracture, subluxation, disc herniation, DJD, spinal stenosis, dissection, AAA, pancreatitis, peptic ulcer disease, pyelonephritis, kidney stone, this is not meant to be an all-inclusive list. EKG interpreted by me (3pts min.)? @ -Not obtained X-rays interpreted by me (1pt min.)? @ -X-ray of the left rib cage obtained. My interpretation identifies no rib fractures. X-ray of the thoracic and lumbar spine obtained. My interpretation also identifies no acute fractures. KUB x-ray obtained. My interpretation identifies no evidence of free air or distended bowel loops. CT interpreted by me (1pt min.)? @ -CT scan of the abdomen/pelvis obtained. My interpretation identifies no evidence of bowel wall thickening or free air. U/S interpreted by me (1pt. min.)? @ -Not obtained What testing was considered but not performed? (CT, X-rays, U/S, labs)? Why? @ -None What meds were considered but not given? Why? @ -None Did you discuss the management of the patient with other professionals? @ -No Did you reconcile home meds? @ -No Was smoking cessation discussed for >3mins.? @ -No Was critical care preformed (if so, how long)? @ -No Were there social determinants of health that impacted care today? How? (Homelessness, low income, unemployed, alcoholism, drug addiction, transportation, low edu. Level, literacy, decrease access to med. care, halfway, rehab)? @ -No Was there de-escalation of care discussed even if they declined? (Discuss DNR or withdrawal of care, Hospice)? @ -No What co-morbidities impacted this encounter? (DM, HTN, Smoking, COPD, CAD, Cancer, CVA, Hep., AIDS, mental health diagnosis, sleep apnea, morbid obesity)? @ -Morbid obesity Was patient admitted / discharged? @ -Discharged. Externally, the patient had no ecchymosis, swelling, or deformities. She did have some tenderness over the abdomen, rib cage, and lower back. X-ray of the left rib cage, thoracic spine, lumbar spine, and KUB obtained demonstrating no acute process. However, given the injury, discussed the option of proceeding with a computed tomography scan of the abdomen and pelvis. Patient requested to proceed. Computed tomography scan of the abdomen and pelvis obtained also demonstrating no acute findings. Patient discharged home in stable condition. Advised ibuprofen and Tylenol as needed for pain relief. Undiagnosed new problem with uncertain prognosis? @ -None Drug Therapy requiring intensive monitoring for toxicity (Heparin, Nitro, Insulin, Cardizem)? @ -None Were any procedures done? @ -None Diagnosis/symptom? @ -Fall, back pain, abdominal pain Acute, or Chronic, or Acute on Chronic? @ -Acute Uncomplicated (without systemic symptoms) or Complicated (systemic symptoms)? @ -Uncomplicated Side effects of treatment? @ -None Exacerbation, Progression, or Severe Exacerbation] @ -Not applicable Poses a threat to life or bodily function? @ -No Return precautions reviewed in depth, the patient is instructed to return to the emergency department with any new, worsening, or concerning symptoms. Patient verbalized understanding. This case was discussed in detail with the attending ED physician, Dr. Pozo. Presentation, findings, and treatment plan discussed in detail as well. - Radiology Data Radiology results: report reviewed, image reviewed Disposition Clinical Impression: Fall Disposition: HOME SELF-CARE Instructions (If sedation given, give patient instructions): Fall Prevention (ED) Additional Instructions: Return to the emergency department with any new, worsening, or concerning symptoms. Alternate with ibuprofen and Tylenol as needed for pain relief. Follow up with your primary care provider in 1-2 days. Is patient prescribed a controlled substance at d/c from ED?: No Referrals: Sydnie Otoole MD [Primary Care Provider] - 1-2 days Time of Disposition: 21:34
--- NOTE | 2023-10-07 17:50 | XR ---
EXAMINATION TYPE: XR KUB DATE OF EXAM: 10/07/2023 COMPARISON: NONE HISTORY: Pain TECHNIQUE: Single supine KUB image of the abdomen is obtained FINDINGS: Small bowel demonstrates no evidence for dilatation or air fluid levels. Gas and fecal material is seen in non-distended colon. No convincing evidence for pneumoperitoneum. No unusual calcifications. The lung bases are clear. The osseous structures are intact. IMPRESSION: 1. Overall nonobstructive bowel gas pattern.
--- NOTE | 2023-10-07 17:52 | XR ---
EXAMINATION TYPE: XR thoraco lumbar junction DATE OF EXAM: 10/07/2023 COMPARISON: None HISTORY: Pain after fall TECHNIQUE: AP and lateral views of the thoracolumbar spine are submitted. FINDINGS: There is no evidence of fracture or malalignment. No significant degenerative narrowing robert reciated. IMPRESSION: Negative
--- NOTE | 2023-10-07 17:53 | XR ---
EXAMINATION TYPE: XR ribs LT DATE OF EXAM: 10/07/2023 CLINICAL HISTORY: Pain, Fall Four views of the ribs fail demonstrate evidence for displaced rib fracture or secondary sign of rib fracture. Visualized lungs are clear. No evidence for pneumothorax. IMPRESSION: No displaced rib fractures seen. ICD 10 NO FRACTURE, INITIAL EVALUATION
[2023-10-07 22:13] VITALS: BP 130/84; PULSE 74; RESP 18; TEMP 98.1
--- NOTE | 2023-10-08 00:23 | CT ---
EXAMINATION TYPE: CT abdomen pelvis wo con CT DLP: 2379.6 mGycm, Automated exposure control for dose reduction was used. DATE OF EXAM: 10/07/2023 9:27 PM COMPARISON: None. CLINICAL INDICATION:Female, 38 years old with history of Abdominal injury; left sided abdominal pain following fall TECHNIQUE: Axial CT of the abdomen and pelvis. Sagittal and coronal reformats were created on a [employer] workstation. Contrast used: mL of , (none if empty) Oral contrast used: without Oral Contrast (none if empty) FINDINGS: Exam is limited without contrast. Additional limitations include motion and body habitus. LOWER CHEST: Small pleural/parenchymal focus of thickening in the posterior inferior right lung base with vague calcifications. Heart size upper normal. No acute findings. Possible small hiatal hernia. ABDOMEN LIVER: Unremarkable parenchyma. Liver appears enlarged measuring 20.5 cm craniocaudal. GALLBLADDER AND BILE DUCTS: Grossly unremarkable gallbladder. No biliary ductal dilatation. PANCREAS: Unremarkable. SPLEEN: Unremarkable. No evidence of perisplenic hematoma. There is a small accessory splenule. ADRENAL GLANDS: Unremarkable. KIDNEYS AND URETERS: No evidence of renal calculi or contour deformity. No hydronephrosis. PELVIS BLADDER: Grossly unremarkable. There are pelvic phleboliths. REPRODUCTIVE: Uterus appears enlarged, particularly the fundal region, nonspecific but most commonly seen with fibroid disease. Ovaries are not readily identified. ABDOMEN & PELVIS STOMACH AND BOWEL: Stomach and small bowel are nondistended, no evidence of obstruction. The append ix appears within normal limits. There is some stool and gas seen throughout the colon with no focal acute abnormality shown. PERITONEUM/RETROPERITONEUM: No evidence of pneumoperitoneum or free fluid. VASCULATURE: No significant vascular calcification. No evidence of AAA. LYMPH NODES: No gross evidence for lymphadenopathy. SOFT TISSUE/ABDOMINAL WALL: Mild broad-based laxity between the abdominal rectus muscles, with tiny s uperimposed fat-containing umbilical hernia. MUSCULOSKELETAL: No acute osseous abnormalities. Mild disc degeneration changes are present throughou t the thoracolumbar spine. Chronic appearing deformity of the coccyx with ventral tilting. IMPRESSION: 1. Limited unenhanced study shows no evidence of acute traumatic injury in the abdomen or pelvis. 2. Hepatomegaly. 3. Suspect uterine fibroids.
== END 2023-10-07 22:07 | disposition home or self-care (01) ==
LOC: EC 16:41
DX: M54.50 Low back pain, unspecified (principal); R10.9 Unspecified abdominal pain; J45.909 Unspecified asthma, uncomplicated; Z88.0 Allergy status to penicillin; W00.0XXA Fall on same level due to ice and snow, initial encounter
CPT/HCPCS: 72080; 74018; 74176; 99284

== ENCOUNTER 2023-11-09 18:01 | Emergency (ER) | payer OTHER ==
[2023-11-09 18:26] VITALS: BP 147/97; PULSE 77; RESP 16; TEMP 97.8
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
[2023-11-09 18:42] LABS: Basophils % (A) 0 %; Eosinophils # (A) 0.1 k/uL (0-0.7); Eosinophils % (A) 3 %; HCT 36.2 % (34.0-46.0); HGB 11.6 gm/dL (11.4-16.0); Lymphocytes # (A) 1.5 k/uL (1.0-4.8); Lymphocytes % (A) 35 %; MCH 27.3 pg (25.0-35.0); MCHC 32.1 g/dL (31.0-37.0); MCV 85.1 fL (80.0-100.0); Mean Platelet Volume 8.2; Monocytes # (A) 0.2 k/uL (0-1.0); Monocytes % (A) 4 %; Neutrophils # (A) 2.4 k/uL (1.3-7.7); Neutrophils % (A) 56 %; Platelet Count 205 k/uL (150-450); RBC 4.26 m/uL (3.80-5.40); RDW 15.2 % (11.5-15.5); WBC 4.2 k/uL (3.8-10.6)
[2023-11-09 19:09] LABS: ALT 17 U/L (4-34); AST 19 U/L (14-36); African American GFR (CKD) >90 (>60 ml/min/1.73 sqM); Albumin 4.5 g/dL (3.5-5.0); Alkaline Phosphatase 78 U/L (38-126); Amylase 58 U/L (30-110); Anion Gap 6 mmol/L; Blood Urea Nitrogen 7 mg/dL (7-17); Calcium 9.2 mg/dL (8.4-10.2); Carbon Dioxide 27 mmol/L (22-30); Chloride 105 mmol/L (98-107); Glucose 88 mg/dL (74-99); Lipase 81 U/L (23-300); Non-African American GFR(CKD) >90 (>60 ml/min/1.73 sqM); Potassium 3.8 mmol/L (3.5-5.1); Sodium 138 mmol/L (137-145); Total Bilirubin 0.7 mg/dL (0.2-1.3); Total Protein 7.8 g/dL (6.3-8.2)
--- NOTE | 2023-11-09 19:48 | US ---
EXAMINATION TYPE: US transvaginal DATE OF EXAM: 11/09/2023 COMPARISON: US 2021 CLINICAL INDICATION: Female, 38 years old with history of vaginal spotting; Left pelvic pain, spottin g TECHNIQUE: Transvaginal ER exam Date of LMP: 10/18/2023 EXAM MEASUREMENTS: Uterus: 12.6 x 10.1 x 8.9cm Endometrial Stripe: 1.0cm Right Ovary: 3.5 x 2.4 x 2.5cm Left Ovary: 5.2 x 3.3 x 3.0cm 1. Uterus: enlarged, heterogeneous, 8.5 x 6.4 x 7.9cm fibroid 2. Endometrium: appears wnl 3. Right Ovary: wnl 4. Left Ovary: 4.0 x 2.9 x 2.3cm cyst Spectral, color and waveform doppler imaging shows good arterial flow within bilateral ovaries and good venous flow within the left ovary, unable to obtain venous flow within the right ovary. 5. Bilateral Adnexa: wnl 6. Posterior cul-de-sac: small amount of free fluid IMPRESSION: 1. Appropriate arterial and venous spectral waveforms to the ovaries. 2. Left ovarian suspected hemorrhagic cyst. Short-term follow-up in 6-8 weeks recommended to ensure resolution. 3. Fibroid uterus.
[2023-11-09 21:29] LABS: Appearance,Urine Cloudy (Clear); Bacteria,Urine Occasional /hpf; Bilirubin,Urine Negative (Negative); Blood,Urine Large (Negative); Color,Urine Light Orange; Glucose,Urine (UA) Negative (Negative); Hyaline Casts,Urine 5 /lpf (0-2); Ketones,Urine Negative (Negative); Leukocyte Esterase,Urine Moderate (Negative); Mucus,Urine Many /hpf; Nitrite,Urine Positive (Negative); PH, Urine 5.5 (5.0-8.0); Protein,Urine 1+ (Negative); RBC,Urine 3 /hpf (0-5); Specific Gravity,Urine 1.034 (1.001-1.035); Squamous Epithelial Cell,Urine 30 /hpf (0-4); Urobilinogen,Urine <2.0 mg/dL (<2.0); WBC,Urine 61 /hpf (0-5)
== END 2023-11-09 22:00 | disposition home or self-care (01) ==
LOC: EC 18:01
DX: N39.0 Urinary tract infection, site not specified (principal); D25.9 Leiomyoma of uterus, unspecified; J45.909 Unspecified asthma, uncomplicated; Z88.0 Allergy status to penicillin
CPT/HCPCS: 36415; 76830; 80053; 81001; 81025; 82150; 83690; 85025; 93975; 99284